=== PATIENT | female | born 1945 | race Hispanic/Latino ===

== ENCOUNTER 2017-12-03 11:06 | Emergency (ER) | payer OTHER ==
[2017-12-03] MEDS ORDERED: ACETAMINOPHEN 325 MG TAB ONE (12:37)
== END 2017-12-03 12:50 | disposition home or self-care (01) ==
LOC: EDH 11:06
DX: S62.315A Displaced fracture of base of fourth metacarpal bone, left hand, initial encounter for closed fracture (principal); S62.333A Displaced fracture of neck of third metacarpal bone, left hand, initial encounter for closed fracture; S62.617A Displaced fracture of proximal phalanx of left little finger, initial encounter for closed fracture; S62.335A Displaced fracture of neck of fourth metacarpal bone, left hand, initial encounter for closed fracture; S63.261A Dislocation of metacarpophalangeal joint of left index finger, initial encounter; W18.11XA Fall from or off toilet without subsequent striking against object, initial encounter; Y93.89 Activity, other specified; Y92.89 Other specified places as the place of occurrence of the external cause; Y99.8 Other external cause status
CPT/HCPCS: 26742; 73130

== ENCOUNTER → 2017-12-10 | Outpatient (CLI) | payer OTHER | END | disposition home or self-care (01) | LOC: SHCH 11:23 | PROVIDERS: ATTEND Internal Medicine Cardiovascular Disease | DX: I35.0 Nonrheumatic aortic (valve) stenosis (principal); Z95.2 Presence of prosthetic heart valve | CPT/HCPCS: 93306 ==